=== PATIENT | male | born 1970 | race Caucasian/White ===

== ENCOUNTER 2017-07-10 19:02 | Emergency (ER) | payer BC ==
[2017-07-10 19:49] VITALS: BP 138/77
[2017-07-10] MEDS ORDERED: BSS OPTH.SOL* BTL ONE (19:52)
[2017-07-10] MEDS ORDERED: Fluorescein Sodium TOPICAL* 1 MG TEST ONE (19:52)
[2017-07-10] MEDS ORDERED: Tetracaine 0.5% OPTH.SOL 4 ML* 1 DROP BTL ONE (19:52)
--- NOTE | 2017-07-10 20:11 | UC ---
Eye Complaint HPI - HPI Summary HPI Summary: 47 year old male with eye complaint. 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 no welding. no vision loss. no double vision. has been watering all day. he showered yesterday and did use eye flush from the store and not better. feels like something is in his eye. - History of Current Complaint Chief Complaint: UCEye Stated Complaint: EYE COMPLAINT Time Seen by Provider: 07/10/17 19:54 Hx Obtained From: Patient, Family/Youth Specialist Onset/Duration: Sudden Onset Timing: Constant Location of Injury: Eye Lid (upper) Aggravating Factor(s): Light Alleviating Factor(s): Nothing Associated Signs And Symptoms: Positive: Photophobia, Drainage (Clear). Negative: Drainage (Purulent), Vision Impairment Bilateral, Vision Impairment Right, Vision Impairment Left - Allergies/Home Medications Allergies/Adverse Reactions: Allergies Allergy/AdvReac Type Severity Reaction Status Date / Time No Known Allergies Allergy Verified 07/10/17 19:49 Home Medications: Home Medications NK [No Home Medications Reported] 07/10/17 [History Confirmed 07/10/17] PMH/Surg Hx/FS Hx/Imm Hx - Surgical History Surgical History: None - Social History Alcohol Use: Occasionally Substance Use Type: None Smoking Status (MU): Never Smoked Tobacco Review of Systems Eyes: Photophobia, Other - FB sensation All Other Systems Reviewed And Are Negative: Yes Physical Exam Triage Information Reviewed: Yes Appearance: Well-Appearing, Well-Nourished, Pain Distress - mild Vital Signs: Initial Vital Signs Temp 98.0 F 07/10/17 19:44 Pulse 82 07/10/17 19:44 Resp 18 07/10/17 19:44 BP 138/77 07/10/17 19:44 Pulse Ox 99 07/10/17 19:44 Vital Signs Reviewed: Yes Eyes: Positive: Other: - No FB noted. ? mild uptake abrasion Right upper outter quadrant . pain relieved with the tetracaine. moderate swelling up the upper eyelid . inspected the eye 3 separate times and no FB noted . FROM. [facility]. ENT Exam: Normal Respiratory Exam: Normal Cardiovascular Exam: Normal Musculoskeletal Exam: Normal Neurological Exam: Normal Psychological Exam: Normal Skin Exam: Normal Eye Complaint Course/Dx - Course Course Of Treatment: No FB noted. ? mild uptake abrasion Right upper outter quadrant . pain relieved with the tetracaine. moderate swelling up the upper eyelid -- treat with polytrim since that is the only option here and pharmacy closed -- refer to Optho if in pain Wednesday. If acute concerns for anything else return here or ED - Differential Dx/Diagnosis Differential Diagnosis/HQI/PQRI: Conjunctivitis, Corneal Abrasion Provider Diagnoses: corneal abrasion right eye Discharge - Discharge Plan Condition: Good Disposition: HOME Patient Education Materials: Corneal Abrasion (ED)
[2017-07-10] MEDS ORDERED: Polymyx/Trimethoprim OPTH* 10 ML BTL RIGHT EYE SCH (20:30)
[2017-07-10] MEDS ORDERED: Polymyx/Trimethoprim OPTH* 10 ML BTL ONE (20:32)
== END 2017-07-10 20:44 | disposition home or self-care (01) ==
LOC: UCCORT 19:02
DX: S05.01XA Injury of conjunctiva and corneal abrasion without foreign body, right eye, initial encounter (principal); X58.XXXA Exposure to other specified factors, initial encounter
CPT/HCPCS: 99203; A9270-GY; G0463